=== PATIENT | female | born 1990 | race Caucasian/White ===

== ENCOUNTER 2017-10-23 15:00 | Outpatient (CLI) | payer OTHER | END 2017-10-23 15:01 | disposition home or self-care (01) | LOC: DTY/OP 15:00 | PROVIDERS: ATTEND Nurse Practitioner Family | DX: R63.4 Abnormal weight loss (principal) | CPT/HCPCS: 97802 ==

== ENCOUNTER 2019-12-20 07:07 | Emergency (ER) | payer OTHER ==
[2019-12-20 08:35] LABS: BHCG - Serum Negative (NEGATIVE); Pregs Control Background? CLEAR/WHITE (CLR/WHITE); Pregs Control Bar Appear? YES (CONTROL BAR)
[2019-12-20 08:52] LABS: Hemoglobin 13.6 g/dL (12.0-16.0); Mean Corpuscular Hemoglobin 31.3 pg (27.0-31.0); Mean Corpuscular Volume 92.1 fL (78.0-98.0); Mean Platelet Volume 10.5 fL (7.4-10.4); Platelet Count 110 thou/uL (130-400); RBC Distribution Width 12.2 % (11.5-14.5); Red Blood Cell (RBC) Count 4.33 mill/uL (4.20-5.40); White Blood Cell (WBC) Count 6.8 thou/uL (4.8-10.8)
[2019-12-20 08:54] LABS: ALT (SGPT) 9 U/L (8-55); AST (SGOT) 13 U/L (5-34); Alkaline Phosphatase 64 U/L (40-110); Anion Gap 12 mmol/L (10-20); BUN (Urea Nitrogen) 8 mg/dL (7.0-18.7); Bilirubin, Total 0.8 mg/dL (0.2-1.2); Calc. Creatinine Clearance 0 mL/min (70-130); Calcium 8.2 mg/dL (7.8-10.44); Carbon Dioxide 24 mmol/L (22-29); Chloride 107 mmol/L (98-107); Estimated GFR-MDRD Greater than 90; Globulin 2.6 g/dL (2.4-3.5); Glucose 80 mg/dL (70-105); Lipase 15 U/L (8-78); Potassium 3.7 mmol/L (3.5-5.1); Protein, Total 6.6 g/dL (6.0-8.3); Sodium 139 mmol/L (136-145)
[2019-12-20 09:08] LABS: #Eosinphils 0.3 thou/uL (0.0-0.7); #Lymphocytes 1.3 thou/uL (1.20-3.40); #Monocytes 0.4 thou/uL (0.11-0.59); #Neutrophils 4.7 thou/uL (1.40-6.50); %Basophils 0.4 % (0.0-1.0); %Lymphocytes 19.2 % (21.0-51.0); %Neutrophils 69.5 % (42.0-75.0); Platelet Morphology Comment Appears Decreased
[2019-12-20] MEDS ORDERED: Ketorolac Tromethamine 30 MG/ML VIAL ONE (09:28)
[2019-12-20 09:50] LABS: Bilirubin Negative (Negative); Blood, Urine Negative (Negative); Clarity Clear (Clear); Glucose, Urine (Dipstick) Normal (Negative); Ketone, Urine Negative (Negative); Leukocyte Negative Leu/uL (Negative); Nitrite Negative (Negative); Protein, Urine (Dipstick) Negative (Neg-Trace); Specific Gravity, Urine 1.008 (1.002-1.036); Urobilinogen Normal mg/dL (Less than 2)
--- NOTE | 2019-12-20 11:30 | ULT ---
ULTRASOUND PELVIS TRANSABDOMINAL AND TRANSVAGINAL: HISTORY: Pelvic pain. FINDINGS: Real-time, jauregui scale, color Doppler, and spectral analysis of the pelvis was performed transabdomina l and transabdominal approach. Uterus measures 9 x 4.7 x 6.9 cm with a normal endometrial thickness of 2 mm. Intrauterine device in good position. The right ovary and left ovary both have adequate vascular flow. Right ovarian cyst measures 1.9 cm. Multiple left ovarian cysts measuring 2.2 cm. Moderate free fluid in the pelvis. IMPRESSION: 1. Bilateral ovarian cysts with adequate vascular flow. 2. Moderate volume free fluid in the pelvis, likely physiologic. 3. Intact intrauterine device. POS: HOME
[2019-12-22 22:07] LABS: Chlamydia by PCR Not Detected (NotDetected); GC by PCR Not Detected (NotDetected)
== END 2019-12-20 10:27 | disposition home or self-care (01) ==
LOC: ERS 07:07
DX: N83.202 Unspecified ovarian cyst, left side (principal); N83.201 Unspecified ovarian cyst, right side; N76.0 Acute vaginitis; F17.210 Nicotine dependence, cigarettes, uncomplicated
CPT/HCPCS: 36415; 76856; 80053; 81003; 83690; 84703; 85025; 87480; 87491; 87510; 87591; 87660; 96372; J1885